=== PATIENT | female | born 1985 | race Caucasian/White ===

== ENCOUNTER 2018-03-24 18:03 | Emergency (ER) | payer OTHER ==
[~2018-03-24] VITALS: Ht 157.5 cm; Wt 49.9 kg
[~2018-03-24 18:03] MED LIST: ACETAMINOPHEN-1 EAC1 PO; ANTIBIOTIC; NORCO 5-325 TA1 EACH; PREDNISONE; YASMIN 28 TABL1 EACH
[2018-03-24] MEDS ORDERED: EFFEXOR XR37.5 MG PO (18:17)
[2018-03-24] MEDS ORDERED: CLONAZEPAM 0.50.5 M1 PO (18:17)
[2018-03-24] MEDS ORDERED: IBU800 MG PO (19:01)
[2018-03-24 19:13] VITALS: BP 112/70
== END 2018-03-24 19:14 | disposition home or self-care (01) ==
LOC: M.ERS 18:03
DX: M25.571 Pain in right ankle and joints of right foot (principal); J45.909 Unspecified asthma, uncomplicated; Z88.0 Allergy status to penicillin